=== PATIENT | female | born 1975 | race Caucasian/White ===

== ENCOUNTER 2017-05-13 15:14 | Emergency (ER) | payer OTHER ==
[~2017-05-13] VITALS: Ht 149.9 cm; Wt 153.2 kg
[~2017-05-13 15:14] MED LIST: ADVAIR 250/501 DISK IH; BACTROBAN OINTM22 GM TP; CELEXA40 MG PO; CEPHALEXIN500 MG PO; CITALOPRAM HBR40 MG PO; DEPO-PROVER150 MG/ML IM; Ecotrin PO; FLUTICASONE PRO16 GM BOTH NARES; FUROSEMIDE40 MG PO; KURVELO1 EACH PO; LORATADINE10 M2 PO; PRILOSEC10 MG PO; QUETIAPINE FUMA25 MG PO; RANITIDINE HCL150 MG PO; SEROquel PO; Zantac PO
[2017-05-13 16:00] LABS: HEMATOCRIT 41.7 % (36.0-46.0); MCH 27.8 PG (29.0-34.0); MCHC 30.9 G/DL (30.0-36.0); MCV 89.9 FL (83-99); MEAN PLAT.VOLUME 9.5 uM^3 (9.5-12.4); PLATELET COUNT 337 K/uL (156-360); RBC DIS.WIDTH-CV 14.1 % (11.8-14.6); RBC DIS.WIDTH-SD 46.3 % (39-53); RED BLOOD COUNT 4.64 M/uL (3.80-5.20); WHITE BLOOD COUNT 9.7 K/uL (4.1-10.2)
[2017-05-13 16:10] LABS: CHLORIDE 106 mEq/L (99-109); POTASSIUM 4.1 mEq/L (3.7-5.4); SODIUM 140 mEq/L (136-147)
[2017-05-13 16:11] LABS: GLUCOSE 99 mg/dL (70-99)
[2017-05-13 16:13] LABS: ANION GAP 9 MEQ/L (2-14)
[2017-05-13 16:15] LABS: GFR ESTIMATE (CALCULATED) > 59 mL/min/
[2017-05-13 16:16] LABS: UREA NITROGEN (BUN) 11 mg/dL (9-23)
[2017-05-13 17:12] LABS: TROP-I INTERPRETATION NEGATIVE; TROPONIN-I < 0.01 ng/mL (0.0-0.30)
[2017-05-13] MEDS ORDERED: ANTIVERT25 MG PO (19:15)
[2017-05-13 19:33] VITALS: BP 120/57
== END 2017-05-13 19:35 | disposition home or self-care (01) ==
LOC: EME 15:14
DX: R42 Dizziness and giddiness (principal); R06.00 Dyspnea, unspecified; M79.651 Pain in right thigh; R11.0 Nausea; R00.2 Palpitations; M79.661 Pain in right lower leg
CPT/HCPCS: 71020; 71275; 80048; 84484; 85027; 93005; 99281; 99285; J7030